=== PATIENT | male | born 1955 | race Caucasian/White ===

== ENCOUNTER 2021-09-28 12:10 | Inpatient (IN) | payer OTHER ==
[2021-09-28] MEDS ORDERED: Enoxaparin Sodium 80 MG/0.8 ML SYRINGE ONE (12:42)
[2021-09-28] MEDS ORDERED: Diltiazem 125 MG/25 ML ONE (12:42)
[2021-09-28 13:03] LABS: #Basophils 0.1 10x3/uL (0.0-0.2); #Eosinphils 0.3 10x3/uL (0.0-0.5); #Monocytes 0.8 10x3/uL (0.0-1.1); #Neutrophils 7.9 10x3/uL (1.5-8.4); %Basophils 0.8 % (0.0-2.0); %Eosinophils 2.3 % (0.0-6.0); %Monocytes 6.9 % (0.0-10.0); %Neutrophils 68.7 % (40.0-75.0); Hemoglobin 17.1 g/dL (13.5-17.5); Mean Corpuscular HGB CONC 34.3 g/dL (32.0-36.0); Mean Corpuscular Hemoglobin 30.6 pg (27.0-33.0); Mean Corpuscular Volume 89.3 fl (81.2-95.1); Mean Platelet Volume 9.3 fl (7.4-10.4); Platelet Count 287 10x3/uL (150-450); RBC Distribution Width 12.3 % (11.5-14.5); Red Blood Cell (RBC) Count 5.59 10x6/uL (4.32-5.72); White Blood Cell (WBC) Count 11.5 10x3/uL (3.5-10.5)
[2021-09-28 13:07] LABS: ALT (SGPT) 28 U/L (8-55); AST (SGOT) 26 U/L (5-34); Albumin 4.7 g/dL (3.4-4.8); Alkaline Phosphatase 61 U/L (40-110); Anion Gap 14 mmol/L (10-20); BUN (Urea Nitrogen) 20 mg/dL (8.4-25.7); Bilirubin, Total 0.8 mg/dL (0.2-1.2); Calc. Creatinine Clearance 0 mL/min (70-130); Calcium 9.6 mg/dL (7.8-10.44); Carbon Dioxide 24 mmol/L (23-31); Chloride 104 mmol/L (98-107); Glucose 98 mg/dL (80-115); Magnesium 2.1 mg/dL (1.6-2.6); Potassium 4.2 mmol/L (3.5-5.1); Protein, Total 7.7 g/dL (5.8-8.1); Sodium 138 mmol/L (136-145)
[2021-09-28 18:12] VITALS: BMI 27.4
[2021-09-28] MEDS ORDERED: Diltiazem 125 MG in Sodium Chloride 0.9% 100 ML IVPB SCH ×2 (18:30→18:45)
[2021-09-28] MEDS: Sodium Chloride 0.9% 1,000 ML IV SCH (18:54)
[2021-09-28 19:37] LABS: Troponin I Less than 0.010 ng/mL (< 0.028)
[2021-09-28] MEDS: Apixaban 5 MG TAB PO SCH (21:09)
[2021-09-29] MEDS ORDERED: Acetaminophen 325 MG TAB PO PRN (05:19)
[2021-09-29 07:19] LABS: #Basophils 0.1 10x3/uL (0.0-0.2); #Eosinphils 0.2 10x3/uL (0.0-0.5); #Monocytes 0.7 10x3/uL (0.0-1.1); #Neutrophils 6.1 10x3/uL (1.5-8.4); %Basophils 0.7 % (0.0-2.0); %Eosinophils 2.6 % (0.0-6.0); %Monocytes 7.6 % (0.0-10.0); %Neutrophils 71.7 % (40.0-75.0); Hemoglobin 16.1 g/dL (13.5-17.5); Mean Corpuscular HGB CONC 34.4 g/dL (32.0-36.0); Mean Corpuscular Hemoglobin 30.9 pg (27.0-33.0); Mean Corpuscular Volume 89.8 fl (81.2-95.1); Mean Platelet Volume 9.5 fl (7.4-10.4); Platelet Count 244 10x3/uL (150-450); RBC Distribution Width 12.4 % (11.5-14.5); Red Blood Cell (RBC) Count 5.21 10x6/uL (4.32-5.72); White Blood Cell (WBC) Count 8.5 10x3/uL (3.5-10.5)
[2021-09-29 07:45] LABS: Anion Gap 14 mmol/L (10-20); BUN (Urea Nitrogen) 23 mg/dL (8.4-25.7); Calc. Creatinine Clearance 79 mL/min (70-130); Calcium 8.7 mg/dL (7.8-10.44); Carbon Dioxide 22 mmol/L (23-31); Chloride 106 mmol/L (98-107); Glucose 104 mg/dL (80-115); Sodium 138 mmol/L (136-145)
[2021-09-29] MEDS ORDERED: Aspirin 81 mg Enteric Coated Tablet PO SCH (09:00)
[2021-09-29] MEDS: Sodium Chloride 0.9% 1,000 ML IV SCH (10:21)
[2021-09-29] MEDS: Apixaban 5 MG TAB PO SCH (10:23)
[2021-09-29 13:27] VITALS: BP 149/83; TEMP 98.2
[2021-09-29 17:15] LABS: SARS-CoV-2 PCR by NAA Not Detected (NotDetected)
== END 2021-09-29 16:22 | disposition home or self-care (01) | DRG 309 ==
LOC: EEVIPCON 12:10 → CSHERS 12:10 → CSHTELE 17:39
PROVIDERS: ADMIT Family Medicine; ATTEND Family Medicine
DX: I48.0 Paroxysmal atrial fibrillation (principal); N17.9 Acute kidney failure, unspecified; N18.2 Chronic kidney disease, stage 2 (mild); I07.1 Rheumatic tricuspid insufficiency; E86.0 Dehydration; Z20.822 Contact with and (suspected) exposure to COVID-19
CPT/HCPCS: 36415; 71045; 80048; 80053; 83735; 84443; 84484; 85025; 93005; 93306; J1650; J7050; U0003; U0005